=== PATIENT | male | born 1935 | race Caucasian/White ===

== ENCOUNTER 2018-03-07 22:27 | Inpatient (IN) | payer OTHER ==
[~2018-03-07] VITALS: Ht 154.9 cm; Wt 45.4 kg
[~2018-03-07 22:27] MED LIST: AVALIDE 150/12.1 TAB PO; CIPRO500 MG PO; EAR WAX DROPS15 ML OTIC; SEPTRA DS TABLE1 TAB PO; TEGRETOL200 MG PO; TENORMIN50 MG PO; TRANXENE T-TAB7.5 MG PO; XARELTO20 MG PO
[2018-03-13] MEDS ORDERED: TAMSULOSIN HCL0.4 MG PO (07:36)
[2018-03-13] MEDS ORDERED: TEGRETOL200 MG PO (07:36)
[2018-03-13] MEDS ORDERED: TRANXENE T-TAB7.5 MG PO (07:36)
[2018-03-13] MEDS ORDERED: TENORMIN50 MG PO (07:36)
[2018-03-13] MEDS ORDERED: PENTOXIFYLLINE400 MG PO (07:36)
== END 2018-03-13 13:42 | disposition home or self-care (01) | DRG 194 ==
LOC: ER 22:27 → MEDJ 03-08 07:02
PROC: 3E0F7GC Introduction of Other Therapeutic Substance into Respiratory Tract, Via Natural or Artificial Opening (ICD-10-PCS; principal; 2018-03-08)
PROC: B246ZZZ Ultrasonography of Right and Left Heart (ICD-10-PCS; 2018-03-08)
PROC: B345ZZZ Ultrasonography of Bilateral Common Carotid Arteries (ICD-10-PCS; 2018-03-08)
PROC: B348ZZZ Ultrasonography of Bilateral Internal Carotid Arteries (ICD-10-PCS; 2018-03-08)
PROC: BW24ZZZ Computerized Tomography (CT Scan) of Chest and Abdomen (ICD-10-PCS; 2018-03-10)
DX: J18.9 Pneumonia, unspecified organism (principal); G45.8 Other transient cerebral ischemic attacks and related syndromes; G40.802 Other epilepsy, not intractable, without status epilepticus; J90 Pleural effusion, not elsewhere classified; E86.0 Dehydration; E03.8 Other specified hypothyroidism; R13.19 Other dysphagia; J84.112 Idiopathic pulmonary fibrosis; I10 Essential (primary) hypertension; L89.892 Pressure ulcer of other site, stage 2; G30.8 Other Alzheimer's disease; F02.80 Dementia in other diseases classified elsewhere, unspecified severity, without behavioral disturbance, psychotic disturbance, mood disturbance, and anxiety

== ENCOUNTER 2018-09-15 14:10 | Emergency (ER) | payer OTHER ==
[~2018-09-15] VITALS: Ht 157.5 cm; Wt 45.4 kg
[~2018-09-15 14:10] MED LIST changes: +PENTOXIFYLLINE400 MG PO; +TAMSULOSIN HCL0.4 MG PO
[2018-09-15] MEDS ORDERED: LEVAQUIN750 MG (14:43)
[2018-09-15] MEDS ORDERED: TEGRETOL200 MG (14:44)
[2018-09-15] MEDS ORDERED: TEMAZEPAM22.5 MG (14:45)
[2018-09-15] MEDS ORDERED: SYNTHROID75 MCG (14:45)
[2018-09-15] MEDS ORDERED: HYZAAR 100-12.1 EACH (14:46)
== END 2018-09-15 21:22 | disposition home or self-care (01) ==
LOC: ER 14:10
DX: S20.211A Contusion of right front wall of thorax, initial encounter (principal); S70.01XA Contusion of right hip, initial encounter; W18.09XA Striking against other object with subsequent fall, initial encounter; Y93.89 Activity, other specified; Y92.018 Other place in single-family (private) house as the place of occurrence of the external cause; Y99.8 Other external cause status

== ENCOUNTER 2018-09-19 14:33 | Inpatient (IN) | payer OTHER ==
[~2018-09-19] VITALS: Ht 154.9 cm; Wt 40.8 kg
[~2018-09-19 14:33] MED LIST changes: +HYZAAR 100-12.1 EACH; +LEVAQUIN750 MG; +SYNTHROID75 MCG; +TEGRETOL200 MG; +TEMAZEPAM22.5 MG
--- NOTE | 2018-09-19 14:51 | NUR ---
SE RECIBE PTE EN AMBULANCIA FAMILIAR REFIERE QUE TIENE ASMA ,LLAMO A HELM [facility] [place] EL CUAL REFIERE QUE LO LLAMEN.
== END 2018-09-27 20:20 | disposition home or self-care (01) | DRG 194 ==
LOC: ER 14:33 → MEDI 19:18
PROVIDERS: ADMIT Internal Medicine
PROC: 4A12X4Z Monitoring of Cardiac Electrical Activity, External Approach (ICD-10-PCS; principal; 2018-09-19)
PROC: 4A033R1 Measurement of Arterial Saturation, Peripheral, Percutaneous Approach (ICD-10-PCS; 2018-09-19)
PROC: 3E0F7GC Introduction of Other Therapeutic Substance into Respiratory Tract, Via Natural or Artificial Opening (ICD-10-PCS; 2018-09-19)
PROC: BB24ZZZ Computerized Tomography (CT Scan) of Bilateral Lungs (ICD-10-PCS; 2018-09-20)
DX: J16.8 Pneumonia due to other specified infectious organisms (principal); I82.403 Acute embolism and thrombosis of unspecified deep veins of lower extremity, bilateral; R13.19 Other dysphagia; R09.02 Hypoxemia; I10 Essential (primary) hypertension; E86.0 Dehydration; E03.8 Other specified hypothyroidism; G40.909 Epilepsy, unspecified, not intractable, without status epilepticus; D72.828 Other elevated white blood cell count; L89.152 Pressure ulcer of sacral region, stage 2; J84.10 Pulmonary fibrosis, unspecified